=== PATIENT | male | born 1955 | race Caucasian/White ===

== ENCOUNTER → 2018-11-13 | Outpatient (CLI) | payer MEDICARE, MEDICAID | LOC: M.ULTRA 14:25 | DX: M79.604 Pain in right leg (principal); M79.89 Other specified soft tissue disorders ==

== ENCOUNTER 2020-09-13 12:32 | Emergency (ER) | payer MEDICARE, MEDICAID ==
[~2020-09-13] VITALS: Ht 177.8 cm; Wt 127.0 kg
[2020-09-13] MEDS ORDERED: LISINOPRIL5 MG (12:42)
[2020-09-13] MEDS ORDERED: KEFLEX500 M1 PO (14:35)
[2020-09-13 14:52] VITALS: BP 125/65
== END 2020-09-13 14:53 | disposition home or self-care (01) ==
LOC: M.ERS 12:32
DX: S80.811A Abrasion, right lower leg, initial encounter (principal); R60.0 Localized edema; I10 Essential (primary) hypertension; Z86.73 Personal history of transient ischemic attack (TIA), and cerebral infarction without residual deficits; Z86.718 Personal history of other venous thrombosis and embolism; X58.XXXA Exposure to other specified factors, initial encounter; Y93.89 Activity, other specified; Y92.89 Other specified places as the place of occurrence of the external cause; Y99.8 Other external cause status